=== PATIENT | female | born 1975 ===

== ENCOUNTER 2017-03-16 12:51 | Emergency (ER) | payer SELFPAY ==
[2017-03-16 13:04] VITALS: BMI 23.6
[2017-03-16 13:13] VITALS: TEMP 98.1; O2SAT 98
--- NOTE | 2017-03-16 13:40 | ED PDOC ---
Arrival/HPI - General Chief Complaint: Trauma Time Seen by Provider: 03/16/17 13:32 - History of Present Illness Narrative History of Present Illness (Text): 41 y/o F p/w head trauma 2 days ago. Patient states an object (like thick glass ) fell off a shelf and struck her on the forehead. She was dazed but denies LOC or vomiting. She noticed a palpable dent on her forehead but did not wish to come to the ER. She comes to the ER today because the defect has not improved despite ice packs. She denies numbness, weakness, nausea, vomiting, change in vision. She took ibuprofen for pain 2 hours prior to arrival and declined further analgesia in the ER. Past Medical History - Psychiatric Hx Substance Use: No - Surgical History Other/Comment: Pt. has multiple abdominal surgery - possibly a cholecystectomy. Pt. unclear on which surgeries she has had. Family/Social History Family/Social History: No Known Family HX Smoking Status: Never Smoked Hx Alcohol Use: No Hx Substance Use: No Allergies/Home Meds Allergies/Adverse Reactions: Allergies No Known Allergies Allergy (Verified 03/16/17 13:04) Home Medications: Home Meds Medication Instructions Recorded Confirmed No Known Home Med 03/16/17 03/16/17 Review of Systems - Physician Review All systems were reviewed & negative as marked: Yes - Review of Systems Eyes: absent: Vision Changes Respiratory: absent: SOB Physical Exam - Physical Exam Narrative Physical Exam (Text): Constitutional: No acute distress. Head: Normocephalic. 2cm palpable depression in L frontal scalp at hairline. Eyes: PERRL. ENT: Moist mucous membranes. Neck: Supple. Cardiovascular: Regular rate. Chest: No tenderness. Respiratory: Clear to auscultation bilaterally. GI: Soft. Nontender. Nondistended. Back: No CVA tenderness. Musculoskeletal: No tenderness or swelling of extremities. Skin: No rash. Neurologic: Alert, no focal deficit. Vital Signs Temp Pulse Resp BP Pulse Ox 03/16/17 13:04 98.1 F 73 15 106/75 98 Medical Decision Making ED Course and Treatment: Will obtain CT to evaluate for skull fracture and intracranial bleed. 03/16/17 14:[address] w/o contrast: Creator : Alejandro Allen FINDINGS: HEMORRHAGE:No intracranial hemorrhage. BRAIN:No mass effect or edema. No atrophy or chronic microvascular ischemic changes. VENTRICLES:Unremarkable. No hydrocephalus. CALVARIUM:Unremarkable. PARANASAL SINUSES:Unremarkable as visualized. No significant inflammatory changes. MASTOID AIR CELLS:Unremarkable as visualized. No inflammatory changes. OTHER FINDINGS:None. IMPRESSION: No evidence of acute intracranial hemorrhage intracranial collection mass effect or midline shift. 03/16/17 14:37 Patient in no distress. I reviewed CT images, and it appears depression is only of soft tissue, no bony involvement. Will discharge home, instructed patient to return to the ER for worsening pain, vomiting, weakness, numbness. - RAD Interpretation Radiology Orders: 03/16/17 13:33 HEAD W/O CONTRAST [CT] Stat Disposition/Present on Arrival - Present on Arrival Any Indicators Present on Arrival: No History of DVT/PE: No History of Uncontrolled Diabetes: No Urinary Catheter: No History of Decub. Ulcer: No History Surgical Site Infection Following: None - Disposition Have Diagnosis and Disposition been Completed?: Yes Diagnosis: Contusion Disposition: HOME/ ROUTINE Disposition Time: 14:19 Patient Plan: Discharge Condition: STABLE Discharge Instructions (ExitCare): Contusion in Adults (ED) Referrals: PCP,NO [Primary Care Provider] - Follow up with primary [facility] at [facility] [place] - Follow up with primary
--- NOTE | 2017-03-16 14:15 | CT ---
PROCEDURE: CT HEAD WITHOUT CONTRAST. HISTORY: headstrike, defect in forehead COMPARISON: None available. TECHNIQUE: Axial computed tomography images were obtained through the head/brain without intravenous contrast. Radiation dose: Total exam DLP = 655.44 mGy-cm. This CT exam was performed using one or more of the following dose reduction techniques: Automated exposure control, adjustment of the mA and/or kV according to patient size, and/or use of iterative reconstruction technique. FINDINGS: HEMORRHAGE: No intracranial hemorrhage. BRAIN: No mass effect or edema. No atrophy or chronic microvascular ischemic changes. VENTRICLES: Unremarkable. No hydrocephalus. CALVARIUM: Unremarkable. PARANASAL SINUSES: Unremarkable as visualized. No significant inflammatory changes. MASTOID AIR CELLS: Unremarkable as visualized. No inflammatory changes. OTHER FINDINGS: None. IMPRESSION: No evidence of acute intracranial hemorrhage intracranial collection mass effect or midline shift.
[2017-03-16 15:07] VITALS: BP 110/70; PULSE 62; RESP 16
== END 2017-03-16 14:45 | disposition home or self-care (01) ==
LOC: ED 12:51
DX: S00.03XA Contusion of scalp, initial encounter (principal); W22.8XXA Striking against or struck by other objects, initial encounter; Y92.9 Unspecified place or not applicable

== ENCOUNTER 2017-12-27 09:22 | Emergency (ER) | payer MEDICAID ==
[2017-12-27 09:23] VITALS: BMI 23.6
--- NOTE | 2017-12-27 09:25 | ED PDOC ---
Arrival/HPI - General Time Seen by Provider: 12/27/17 09:24 Historian: Patient - History of Present Illness Narrative History of Present Illness (Text): 12/27/17 09:25 42 y/o female, pmh including asthma, nkda, c/o asthma attack started 4am this morning with no recent traveling. Pt. stated that she woke up this morning with the cough, associated with the wheezing, out of the albuterol MDI, no chest pain or shortness of breath, no night sweat, no dizziness, no change in vision, no leg or calf pain history or currently, no pleuritic pain, no other medical or psychological complaints. Past Medical History - Provider Review Nursing Documentation Reviewed: Yes - Psychiatric Hx Substance Use: No - Surgical History Other/Comment: Pt. has multiple abdominal surgery - possibly a cholecystectomy. Pt. unclear on which surgeries she has had. Family/Social History - Physician Review Nursing Documentation Reviewed: Yes Family/Social History: Unknown Family HX Smoking Status: Never Smoked Hx Alcohol Use: No Hx Substance Use: No Allergies/Home Meds Allergies/Adverse Reactions: Allergies No Known Allergies Allergy (Verified 03/16/17 13:04) Home Medications: Home Meds Medication Instructions Recorded Confirmed Albuterol HFA [Ventolin HFA 90 1 puff IH PRN PRN 12/27/17 12/27/17 mcg/actuation (8 g)] Review of Systems - Review of Systems Constitutional: absent: Fatigue, Fevers Eyes: absent: Vision Changes ENT: absent: Hearing Changes Respiratory: Cough, Wheezing. absent: SOB, Sputum Cardiovascular: absent: Chest Pain Gastrointestinal: absent: Abdominal Pain, Diarrhea, Nausea, Vomiting Skin: absent: Rash, Pruritis Neurological: absent: Headache, Dizziness Psychiatric: absent: Anxiety, Depression, Suicidal Ideation Physical Exam Vital Signs Reviewed: Yes Vital Signs Temp Pulse Resp BP Pulse Ox 12/27/17 11:07 73 18 104/66 100 12/27/17 09:40 21 97 12/27/17 09:30 98.1 F 72 18 102/71 99 Temperature: Afebrile Blood Pressure: Normal Pulse: Regular Respiratory Rate: Normal Appearance: Positive for: Well-Appearing, Non-Toxic, Comfortable Pain Distress: None Mental Status: Positive for: Alert and Oriented X 3 - Systems Exam Head: Present: Atraumatic, Normocephalic Pupils: Present: PERRL Extroacular Muscles: Present: EOMI Conjunctiva: Present: Normal Mouth: Present: Moist Mucous Membranes Neck: Present: Normal Range of Motion Respiratory/Chest: Present: Wheezes, Rhonchi. No: Respiratory Distress, Accessory Muscle Use, Decreased Breath Sounds, Rales, Retracting, Tachypneic, Tender to Palpation Cardiovascular: Present: Regular Rate and Rhythm, Normal S1, S2. No: Murmurs Abdomen: Present: Normal Bowel Sounds. No: Tenderness, Distention, Peritoneal Signs Back: Present: Normal Inspection Upper Extremity: Present: Normal Inspection. No: Cyanosis, Edema Lower Extremity: Present: Normal Inspection. No: Edema Neurological: Present: GCS=15, Speech Normal, Motor Func Grossly Intact, Gait Normal, Memory Normal Skin: Present: Warm, Dry, Normal Color. No: Rashes Psychiatric: Present: Alert, Oriented x 3, Normal Insight, Normal Concentration Medical Decision Making ED Course and Treatment: 12/27/17 09:58 -duoneb prn x 3, prednisone -chest xray -observe and reassess 12/27/17 11:00 -Urine hcg is negative -chest xray show no obvious disease -pt. feels much better after the nebulizer treatment. -Discharge home with cefdinir, prednisone, albuterol MDI, stay hydrated, bed rest, follow up with your own pmd within 2 days, return to the ER for any new or worsening signs or symptoms. - RAD Interpretation Radiology Orders: 12/27/17 09:53 CHEST TWO VIEWS (PA/LAT) [RAD] Stat HISTORY: cough/asthma COMPARISON: No prior. TECHNIQUE: Chest PA and lateral FINDINGS: LUNGS: No active pulmonary disease. PLEURA: No significant pleural effusion identified. No pneumothorax apparent. CARDIOVASCULAR: Normal. OSSEOUS STRUCTURES: No significant abnormalities. VISUALIZED UPPER ABDOMEN: Normal. OTHER FINDINGS: None. IMPRESSION: No active disease. 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 Disposition/Present on Arrival - Present on Arrival Any Indicators Present on Arrival: No History of DVT/PE: No History of Uncontrolled Diabetes: No Urinary Catheter: No History of Decub. Ulcer: No History Surgical Site Infection Following: None - Disposition Have Diagnosis and Disposition been Completed?: Yes Diagnosis: Bronchitis Disposition: HOME/ ROUTINE Disposition Time: 09:59 Patient Plan: Discharge Condition: IMPROVED Discharge Instructions (ExitCare): Acute Bronchitis Additional Instructions: -Discharge home with cefdinir, prednisone, albuterol MDI, stay hydrated, bed rest, follow up with your own pmd within 2 days, return to the ER for any new or worsening signs or symptoms. Prescriptions: Albuterol HFA [Ventolin HFA 90 mcg/actuation (8 g)] 2 puff IH [id number] PRN #1 in PRN Reason: Other Cefdinir [Omnicef] 300 mg PO BID #20 cap Prednisone 50 mg PO DAILY #5 tab Referrals: Jose Alejandro Donis, [Primary Care Provider] - [place] up with [place] [facility] [place] [facility] [place] - Follow up with primary Forms: WORK NOTE
[2017-12-27 09:34] VITALS: TEMP 98.1
[2017-12-27] MEDS ORDERED: Albuterol-Ipratrop 3 mg / 0.5 (3 ml) UD IH STA ×2 (09:53→09:54)
[2017-12-27 11:07] VITALS: BP 104/66; PULSE 73; RESP 18; O2SAT 100
--- NOTE | 2017-12-27 11:24 | RAD ---
HISTORY: cough/asthma COMPARISON: No prior. TECHNIQUE: Chest PA and lateral FINDINGS: LUNGS: No active pulmonary disease. PLEURA: No significant pleural effusion identified. No pneumothorax apparent. CARDIOVASCULAR: Normal. OSSEOUS STRUCTURES: No significant abnormalities. VISUALIZED UPPER ABDOMEN: Normal. OTHER FINDINGS: None. IMPRESSION: No active disease.
== END 2017-12-27 11:13 | disposition home or self-care (01) ==
LOC: ED 09:22
DX: J40 Bronchitis, not specified as acute or chronic (principal)